=== PATIENT | male | born 1990 | race American Indian/Alaskan Native ===

== ENCOUNTER 2018-03-22 08:47 | Day surgery (SDC) | payer MEDICAID ==
[~2018-03-22 08:47] MED LIST: Acetaminophen-Codeine 300/30 mg Tab PO PRN; Dextrose 5%/0.45% NS 1,000 ML IV SCH; EPINEPHrine 1:1000 Nasal Sol(30mL) ONE; Lidocaine/Epinephrine 1% 1:100000 10 ML IJ ONE; Oxymetazoline 0.05% Nasal Spray (30 ml) NS ONE; ceFAZolin 1 gm in NS 1 GM/100 ML BAG IVPB ONE
[2018-03-22] MEDS ORDERED: Lactated Ringer's 1,000 ML IV ONE (10:10)
[2018-03-22] MEDS ORDERED: Propofol 10 mg/ml Inj (20 ML) ONE (10:17)
[2018-03-22] MEDS ORDERED: Midazolam 2 MG/2 ML VIAL ONE (10:17)
[2018-03-22] MEDS ORDERED: Succinylcholine Chloride 20 mg/ml Syr (5 ml) IV ONE (10:19)
[2018-03-22] MEDS ORDERED: Lactated Ringer's 1,000 ML IV SCH (11:30)
[2018-03-22] MEDS: HYDROmorphone 0.5 mg/0.5 ml ISec IVP PRN ×2 (11:35→12:10)
[2018-03-22 13:22] VITALS: RESP 16
[2018-03-22 16:01] VITALS: BP 117/57; PULSE 53; TEMP 97.6; O2SAT 99
--- NOTE | 2018-03-22 21:03 | OP ---
PROCEDURE DATE: 03/22/2018 PREOPERATIVE DIAGNOSES: Deviated septum and enlarged turbinates. POSTOPERATIVE DIAGNOSES: Deviated septum and enlarged turbinates. PROCEDURES: Septoplasty and endoscopic bilateral inferior turbinate reduction. DESCRIPTION OF PROCEDURE: The patient was brought into the room, placed in supine position, anesthesia was initiated through an ET tube. Adrenaline-soaked pledgets were inserted into the nasal cavity, remained there for at least 5 minutes and removed. The patient was draped in the usual manner. The septum was injected with lidocaine with epinephrine on both sides. A [place] incision was made on the left and mucoperichondrial flap was raised. A vertical incision was made in the cartilage leaving a 1.5-cm anterior and superior strut and mucoperichondrial flap was raised on the other side. Deviated portion of the cartilage and bone were removed using forceps and chisel. A quilting suture was used to suture the two flaps together and close the [place] incision. A 0-degree scope was inserted into the nasal cavity. The inferior turbinates were noted to be enlarged, they were reduced first on the left and then on the right, going from inferior to superior, anterior to posterior direction using scissors. Bleeding was controlled on both sides using suction cautery, splint was placed. The patient was taken off anesthesia and taken to recovery room in a stable manner. Bin Lovelace MD
== END 2018-03-22 14:40 | disposition home or self-care (01) ==
LOC: C.OPSURG 08:47
PROVIDERS: ATTEND Otolaryngology
DX: J34.2 Deviated nasal septum (principal); J34.3 Hypertrophy of nasal turbinates
CPT/HCPCS: 30520; 30801; 88304; J0690; J1100; J1170; J2250; J2704; J3010; J7042; J7120